=== PATIENT | female | born 1965 | race Caucasian/White ===

== ENCOUNTER 2016-07-30 18:02 | Emergency (ER) | payer OTHER ==
[~2016-07-30] VITALS: Ht 162.6 cm; Wt 50.0 kg
[~2016-07-30 18:02] MED LIST: IMOD2TAB PO; POTA-243 PO; PROM25SU8 PO
[2016-07-30 18:04] VITALS: BP 158/83; PULSE 98; RESP 14; TEMP 98; O2SAT 98
[2016-07-30] MEDS ORDERED: ALBU6.7H INH (19:31)
[2016-07-30] MEDS ORDERED: ZITH250T PO (19:31)
--- NOTE | 2016-07-30 19:32 | PD ---
HPI Chief Complaint: Cold / Flu Symptoms Time Seen by Provider: 19:31 Travel History International Travel<30 days: No Contact w/Intl Traveler<30days: No Traveled to known affect area: No History of Present Illness HPI 51-year-old white female presents emergency Department with complains of cough and congestion for nearly 3 weeks. She states that she has had some intermittent fever and chills, earache, sore throat, cough, shortness of breath , wheezing at times, colored sputum, and general malaise. She also goes on to state that she's had pain in her left shoulder now for nearly 2 months. No injury. Worse with movement. Some relief with remaining still. PFSH Past Medical History Medical History: Denies Significant Hx Tetanus Vaccination: < 5 Years Past Surgical History Narrative Surgical Hysterectomy Gynecologic Surgery: Yes (HYSTERECTOMY) Hysterectomy: Yes Social History Alcohol Use: Yes Tobacco Use: Yes (PACK) Substance Use: No Allergies-Medications (Allergen,Severity, Reaction): Coded Allergies: No Known Allergies (Unverified , 07/30/16) Reported Meds & Prescriptions Reported Meds & Active Scripts Active Proventil Hfa 6.7 GM Inh (Albuterol Sulfate) 90 Mcg/Act Aer 2 Puff INH Q4-6H PRN Zithromax (Azithromycin) 250 Mg Tab 250 Mg PO DIRECTED Take 2 tabs (500 mg) on day 1 then 1 tab daily x 4 days. Review of Systems Except as stated in HPI: all other systems reviewed are Neg General / Constitutional: Positive: Fever, Chills Eyes: No: Pain, Visual changes HENT: Positive: Headaches, Sore Throat, Rhinitis, Congestion Cardiovascular: No: Chest Pain or Discomfort, Tachycardia Respiratory: Positive: Cough, Shortness of Breath, Wheezing Gastrointestinal: No: Nausea, Vomiting, Abdominal Pain Genitourinary: No: Frequency, Dysuria Musculoskeletal: Positive: Myalgias, No: Arthralgias, Weakness Physical Exam Narrative GENERAL: Well-developed, well-nourished in no acute distress. Nontoxic appearing. HEAD: Normocephalic, atraumatic. EYES: Pupils equal round and reactive. Extraocular motions intact. No scleral icterus. No injection or drainage. ENT: TMs clear without erythema. The external auditory canals clear. Nose: clear . Posterior pharynx is pink and moist. No tonsillar edema or exudate. Uvula midline. Airway patent. NECK: Trachea midline.Supple, nontender, moves head freely. No central bony tenderness or spasm. CARDIOVASCULAR: Regular rate and rhythm without murmurs, gallops, or rubs. RESPIRATORY: Few scattered rhonchi. No wheezes or Rales. Somewhat prolonged expiration. GASTROINTESTINAL: Abdomen soft, non-tender, nondistended. No hepato-splenomegaly , or palpable masses. No guarding. EXTREMITIES: No clubbing, cyanosis, or edema. No joint tenderness, effusion, or edema noted. Patient has no reproducible pain on exam of the left shoulder. She does complain of pain with range of motion. Her passive range of motion is full but she does have a limited active range of motion due to pain. She has no pain in the elbow, wrist or hand. Median/ulnar/radial nerves intact. BACK: Nontender without deformity or crepitance. No flank tenderness. Data Data Last Documented VS Vital Signs Date Time Temp Pulse Resp B/P Pulse Ox O2 Delivery O2 Flow Rate FiO2 07/30/16 18:04 98.0 98 14 158/83 98 Room Air Orders Chest, Pa & Lat (07/30/16 ) MDM Medical Decision Making Medical Screen Exam Complete: Yes Emergency Medical Condition: Yes Medical Record Reviewed: Yes Interpretation(s) Chest x-ray: Negative for infiltrate. Positive COPD changes Differential Diagnosis MDM: High Differential diagnoses: Pneumonia, bronchitis, URI, asthma, RAD, legionnaire's disease, SARS, ARDS, influenza, bronchiolitis, RSV,PE,CHF, arthritis, bursitis Narrative Course This is bronchitis, left shoulder bursitis Diagnosis Primary Impression: Bronchitis Additional Impression: Bursitis of left shoulder Patient Instructions: General Instructions Additional Instructions: Rest. Increase fluids. 3 Advil every 6 hours. Robitussin-DM. Stop smoking. Zithromax, and albuterol. Followup with your Dr. in one week. Return to the ER for any problems. Med/Other Pt SpecificInfo: Prescription(s) given Scripts Albuterol 6.7 GM Inh (Proventil Hfa 6.7 GM Inh)90 Mcg/Act Aer2 Puff INH Q4-6H PRN (SHORTNESS OF BREATH) #1 INHALER Prov:Petey Blum MD 07/30/16 Azithromycin (Zithromax)250 Mg Ivp469 Mg PO DIRECTED #6 TAB Take 2 tabs (500 mg) on day 1 then 1 tab daily x 4 days. Prov:Petey Blum MD 07/30/16 Disposition: 01 DISCHARGE HOME Condition: Stable Reyes Schroeder Jul 30, 2016 19:32
--- NOTE | 2016-07-30 19:46 | RADRPT ---
EXAM DATE/TIME: 07/30/2016 18:40 [facility] COMPARISON: No previous studies available for comparison. INDICATIONS : Cough and left shoulder pain. MEDICAL HISTORY : Smoker. SURGICAL HISTORY : None. ENCOUNTER: Initial ACUITY: 3 days PAIN SCORE: 8/10 LOCATION: Bilateral chest FINDINGS: PA and lateral views of the chest demonstrate the lungs to be symmetrically aerated without evidence of mass, infiltrate or effusion. The cardiomediastinal contours are unremarkable. Osseous structure s are intact. CONCLUSION: No acute disease. There is no evidence of pneumonia. Lew Mattson MD on July 30, 2016 at 19:44 Board Certified Radiologist. This report was verified electronically.
== END 2016-07-30 20:05 | disposition home or self-care (01) ==
LOC: NEPB 18:02
DX: J40 Bronchitis, not specified as acute or chronic (principal); M25.512 Pain in left shoulder; M75.52 Bursitis of left shoulder; J02.9 Acute pharyngitis, unspecified; F17.210 Nicotine dependence, cigarettes, uncomplicated
CPT/HCPCS: 71020; 99283

== ENCOUNTER → 2016-11-07 | Outpatient (CLI) | payer OTHER ==
[~2016-11-07] MED LIST changes: +ALBU6.7H INH; -IMOD2TAB PO; -POTA-243 PO; -PROM25SU8 PO; +ZITH250T PO
--- NOTE | 2016-11-07 10:13 | RADRPT ---
EXAM DATE/TIME: 11/07/2016 09:32 [facility] COMPARISON: No previous studies available for comparison. INDICATIONS : Hepatitis C. MEDICAL HISTORY : Hepatitis C. SURGICAL HISTORY : Hysterectomy. ENCOUNTER: Initial ACUITY: 1 day PAIN SCORE: 0/10 LOCATION: Bilateral upper quadrant MEASUREMENTS: LIVER: 14.0 cm length RIGHT KIDNEY: 9.9 x 5.5 x 5.2 cm SPLEEN: 10.0 cm length FINDINGS: LIVER: Normal echotexture without focal lesion or ductal dilatation. COMMON DUCT: No intraluminal mass or stone visualized. GALLBLADDER: Contains no stones, demonstrates no wall thickening or pericholecystic fluid. PANCREAS: The visualized portions are within normal limits. RIGHT KIDNEY: No hydronephrosis, stone or mass. SPLEEN: No focal lesion. CONCLUSION: Negative ultrasound of the abdomen.. Silvio Retana MD FACR on November 07, 2016 at 10:11 Board Certified Radiologist. This report was verified electronically.
== END ==
LOC: HRAD 08:54
PROVIDERS: ATTEND Internal Medicine Gastroenterology
DX: B19.20 Unspecified viral hepatitis C without hepatic coma (principal)
CPT/HCPCS: 76705

== ENCOUNTER → 2016-11-22 | Outpatient (CLI) | payer OTHER ==
[~2016-11-22] VITALS: Ht 162.6 cm; Wt 53.2 kg
[~2016-11-22] MED LIST changes: +CHLORHEXIDINE GLUCONATE 2 % 1 PACK (2 CLOTHS) TOPICAL PRN; +INSULIN HUMAN REGULAR 1,000 UNITS/10 ML VIAL SQ PRN; +LACTATED RINGER'S 1000 ML IV PRN; +METOPROLOL TARTRATE 25 MG TAB PO PRN; +POVIDONE IODINE 5% (ANTISEPSIS KIT) 4 APPLICATIONS EACH NARE PRN; +PROPOFOL 200 MG/20 ML AMP IV ONE; +SODIUM CHLORID 0.9% 500 ML IV PRN; -ZITH250T PO
[2016-11-22 10:47] VITALS: BP 113/70; PULSE 78; RESP 16; TEMP 98.6; O2SAT 96
--- NOTE | 2016-11-22 13:45 | GIPROC ---
[facility] [address] [facility]. [facility], [address] COLONOSCOPY PROCEDURE REPORT EXAM DATE: 11/22/2016 PATIENT NAME: Joann Gomez MR #: [id number] BIRTHDATE: 1965 ENDOSCOPIST: Harshal Flores MD ORDER #: [id number] TRANSPORTATION MODELER: Adams Sainz and Brian Sutherland STATUS: outpatient INDICATIONS: The patient is a 51 yr old female here for a colonoscopy due to average risk patient for colon cancer PROCEDURE PERFORMED: Colonoscopy, screening MEDICATIONS: None and Per Anesthesia. PREP QUALITY: good ESTIMATED BLOOD LOSS: None CONSENT: The patient understands the risks and benefits of the procedure and understands that these risks include, but are not limited to: sedation, allergic reaction, infection, perforation and/or bleeding. Alternative means of evaluation and treatment include, among others: physical exam, x-rays, and/or surgical intervention. The patient elects to proceed with this endoscopic procedure. medical equipment was checked for proper function. Hand hygiene and appropriate measures for infection prevention was taken. After the risks, benefits and alternatives of the procedure were thoroughly explained, Informed consent was verified, confirmed and timeout was successfully executed by the treatment team. A digital exam revealed no abnormalities of the rectum The Pentax [id number] endoscope was introduced through the anus and advanced to the cecum, which was identified by both the appendix and ileocecal valve. The instrument was then slowly withdrawn as the colon was fully examined. COLON FINDINGS: The colonic mucosa appeared normal throughout the entire examined colon. Mild diverticulosis was noted in the sigmoid colon. Retroflexed views revealed internal hemorrhoids and Retroflexed views revealed small internal hemorrhoids The scope was then completely withdrawn from the patient and the procedure terminated. PROCEDURE WITHDRAWAL TIME:6minutes ADVERSE EVENTS: There were no complications. IMPRESSIONS: 1. The colonic mucosa appeared normal throughout the entire examined colon 2. Mild diverticulosis was noted in the sigmoid colon 3. Retroflexed views revealed internal hemorrhoids 4. Retroflexed views revealed small internal hemorrhoids 5. Revealed no abnormalities of the rectum RECOMMENDATIONS: High fiber diet RECALL: Return 10 years Colonoscopy Harshal Flores MD eSigned: Harshal Flores MD 11/22/2016 1:45 PM cc: Enrique Hagen M.D.
[2016-11-22 13:46] VITALS: TEMP 97.4
[2016-11-22 13:58] VITALS: BP 145/73; PULSE 73; RESP 18; O2SAT 98
--- NOTE | 2016-11-22 18:45 | EKG ---
Date Performed: 11/22/2016 Time Performed: 10:29:34 PTAGE: 51 years EKG: Sinus rhythm POSSIBLE LEFT ATRIAL ENLARGEMENT INCOMPLETE RIGHT BUNDLE BRANCH BLOCK BORDERLINE ECG NO PREVIOUS TRACING DOCTOR: Irving Trevino Interpretating Date/Time 11/22/2016 18:43:15
== END ==
LOC: HEND 09:55
PROVIDERS: ATTEND Internal Medicine Gastroenterology
DX: K57.30 Diverticulosis of large intestine without perforation or abscess without bleeding (principal); K64.8 Other hemorrhoids; Z01.810 Encounter for preprocedural cardiovascular examination
CPT/HCPCS: 45378; 93005; J7120

== ENCOUNTER → 2017-03-18 | Outpatient (CLI) | payer OTHER ==
[~2017-03-18] MED LIST changes: -CHLORHEXIDINE GLUCONATE 2 % 1 PACK (2 CLOTHS) TOPICAL PRN; -INSULIN HUMAN REGULAR 1,000 UNITS/10 ML VIAL SQ PRN; -LACTATED RINGER'S 1000 ML IV PRN; -METOPROLOL TARTRATE 25 MG TAB PO PRN; -POVIDONE IODINE 5% (ANTISEPSIS KIT) 4 APPLICATIONS EACH NARE PRN; -PROPOFOL 200 MG/20 ML AMP IV ONE; -SODIUM CHLORID 0.9% 500 ML IV PRN
--- NOTE | 2017-03-18 10:02 | RADRPT ---
EXAM DATE/TIME: 03/18/2017 07:47 [facility] COMPARISON: No previous studies available for comparison. INDICATIONS : Rotator cuff tear. MEDICAL HISTORY : None. SURGICAL HISTORY : Hysterectomy. ENCOUNTER: Subsequent ACUITY: 1 month PAIN SCORE: 5/10 LOCATION: Left shoulder TECHNIQUE: Multiplanar, multisequence MRI examination was performed without contrast. FINDINGS: ROTATOR CUFF: Mild tendinosis is seen in the supraspinatus tendon without evidence for complete rotator cuff tear. Moderate degenerative changes are present about the AC joint. There is no significant subacromial s purring. There is fluid around the biceps tendon suggesting some bicipital tendinitis. LABRUM: Labrum is within normal limits. MARROW/CARTILAGE: Bone marrow signal is homogeneous. Glenohumeral joint articular cartilage is within normal limits. CONCLUSION: Mild tendinosis supraspinatus tendon. Fluid around the long head of the biceps sugge sting bicipital tendinitis. Silvio Retana MD FACR on March 18, 2017 at 9:57 Board Certified Radiologist. This report was verified electronically.
== END ==
LOC: HRAD 07:08
PROVIDERS: ATTEND Orthopaedic Surgery
DX: M75.102 Unspecified rotator cuff tear or rupture of left shoulder, not specified as traumatic (principal)
CPT/HCPCS: 73221

== ENCOUNTER → 2017-04-26 | Day surgery (SDC) | payer OTHER ==
[~2017-04-26] VITALS: Ht 162.6 cm; Wt 52.5 kg
[~2017-04-26] MED LIST changes: +ACETAMINOPHEN 1000 MG/100 ML 100 ML IV ONE; +BUPIVACAINE/EPINEPHRINE 0.5% PF 10 ML VIAL INFIL ONE; +CHLORHEXIDINE GLUCONATE 2 % 1 PACK (2 CLOTHS) TOPICAL PRN; +CHLORHEXIDINE GLUCONATE 4% SOLN 120 ML BTL TOPICAL SCH; +DEXAMETHASONE SOD PHOS 4 MG/ML VIAL ONE; +INSULIN HUMAN REGULAR 1,000 UNITS/10 ML VIAL SQ PRN; +LACTATED RINGER'S 1000 ML INJ 1,000 ML IV ONE; +LACTATED RINGER'S 1000 ML IV PRN; +METOPROLOL TARTRATE 25 MG TAB PO PRN; +MIDAZOLAM HCL 2 MG/2 ML VIAL ONE; +ONDANSETRON HCL 4 MG/2 ML VIAL IV PUSH ONE; +POVIDONE IODINE 5% (ANTISEPSIS KIT) 4 APPLICATIONS EACH NARE PRN; +PROPOFOL 200 MG/20 ML AMP IV ONE; +SODIUM CHLOR 0.9% 250 ML INJ 250 ML ONE; +SODIUM CHLORID 0.9% 500 ML IV PRN; +VANCOMYCIN 1000 MG/NS 250 ML (for <70 kg) IV SCH; +VANCOMYCIN HCL 1000 MG VIAL ONE; +ceFAZolin 2 GM PREMIX 50 ML IV SCH; +ceFAZolin 2 GM PREMIX 50 ML ONE; +ePHEDrine/NS 25 MG/5 ML SYR IV ONE
[2017-04-26 12:25] VITALS: PULSE 67
[2017-04-26 13:10] VITALS: PULSE 74
--- NOTE | 2017-04-26 13:46 | MP ---
cc: CASH MCGRATH M.D. DATE OF SURGERY: 04/26/[address] Cash Mcgrath. PREOPERATIVE DIAGNOSIS 1. Impingement syndrome of the left shoulder with tendinosis versus rotator cuff tear. 2. Acromioclavicular arthritis, left shoulder. POSTOPERATIVE DIAGNOSIS 1. Rotator cuff tear of the left shoulder, chronic, secondary to impingement syndrome. 2. Osteoarthritis acromioclavicular joint. PROCEDURE 1. Anterior decompression with partial excision of the acromial process and repair of rotator cuff. 2. Excision of distal clavicle. DETAILS OF PROCEDURE The patient was first placed on the operating table in the supine position and adequate general anesthesia was administered by the anesthesiologist. The left shoulder was then prepped and draped in the usual sterile fashion with the patient in a modified beach-chair position. A timeout was called and the patient's name, procedure and location were fully confirmed. A superior anterior incision was made over the acromial process and extended for less than one inch. The wound was taken down through the subcutaneous tissues and bleeding points were electrocauterized. The deep fascia was incised followed by the coracoacromial ligament and finally the deltoid insertion over the anterior border of the acromial process and distal clavicle. The acromioclavicular joint was identified and incised and examined and found to be arthritic. A distal claviculectomy was then performed using a power saw supplemented by hand instruments. The acromial process which was thickened and obviously impinging on the rotator cuff and underlying bursa was then thinned with a high-speed power bur, also supplemented by a hand instrument. The rotator cuff was now visualized and posteriorly there appeared to be obvious chronic tearing in a longitudinal fashion but still no avulsion. We were able to repair the torn portion with interrupted sutures of #2 FiberWire. After thorough and copious irrigation of all fragments the deltoid muscle was reinserted and the defect closed over the acromioclavicular area with #2 FiberWire. Sutures were placed through the acromial process. The patient was extremely thin and small in size and did not require any subcutaneous sutures but instead a subcuticular 4-0 Vicryl was utilized to approximate the skin edges. Sponge counts, needle counts and instrument counts were reported correct x2. The estimated blood loss was minimal. A bulky dressing was applied over the left shoulder and then a left shoulder sling and swathe. The procedure was tolerated well and the patient was transferred to the recovery room in satisfactory condition. MD ALEXANDRE Wilkerson/GODFREY /12:15 PM /1:27 PM
[2017-04-26 14:15] VITALS: BP 114/74; PULSE 68; RESP 16; TEMP 97.9; O2SAT 99
== END | disposition home or self-care (01) ==
LOC: PHSDC 07:18
PROVIDERS: ATTEND Orthopaedic Surgery
DX: M75.122 Complete rotator cuff tear or rupture of left shoulder, not specified as traumatic (principal); M75.42 Impingement syndrome of left shoulder; M19.012 Primary osteoarthritis, left shoulder
CPT/HCPCS: 01610; 23120; 23412; 64415; J0131; J0690; J1100; J2250; J2405; J3010; J3370; J7050; J7120